=== PATIENT | female | born 1985 | race Caucasian/White ===

== ENCOUNTER 2016-12-08 20:44 | Emergency (ER) | payer BC, MEDICARE | END 2016-12-08 23:54 | disposition left against medical advice (07) | LOC: ER 20:44 | DX: Z53.21 Procedure and treatment not carried out due to patient leaving prior to being seen by health care provider (principal) | CPT/HCPCS: 36415; 80053; 81001; 83690; 84703; 85025; 87077; 87088; 87186 ==

== ENCOUNTER 2016-12-09 07:02 | Emergency (ER) | payer BC, MEDICARE ==
[2016-12-09] MEDS ORDERED: DILAUDID 1 MG/ML AMP ONE (07:33)
[2016-12-09] MEDS ORDERED: PROMETHAZINE 25 MG/ML VIAL ONE (07:33)
[2016-12-09] MEDS ORDERED: CEFTRIAXONE 1 GM VIAL ONE (07:33)
[2016-12-09] MEDS ORDERED: SODIUM CHLORIDE 0.9% 100 ML IV ONE (07:34)
[2016-12-09] MEDS ORDERED: SODIUM CHLORIDE 0.9% 1,000 ML ONE (07:34)
== END 2016-12-09 10:04 | disposition home or self-care (01) ==
LOC: ER 07:02
DX: N10 Acute pyelonephritis (principal); R11.2 Nausea with vomiting, unspecified; E11.43 Type 2 diabetes mellitus with diabetic autonomic (poly)neuropathy; K31.84 Gastroparesis; Z79.4 Long term (current) use of insulin; Z96.89 Presence of other specified functional implants; K21.9 Gastro-esophageal reflux disease without esophagitis; Z87.442 Personal history of urinary calculi
CPT/HCPCS: 82947; 96361; 96365; 96375

== ENCOUNTER 2016-12-10 17:11 | Emergency (ER) | payer BC, MEDICARE ==
[2016-12-10] MEDS ORDERED: PROMETHAZINE 25 MG/ML VIAL ONE ×3 (19:10→23:58)
[2016-12-10] MEDS ORDERED: SODIUM CHLORIDE 0.9% 50 ML IV ONE ×3 (19:11→23:58)
[2016-12-10] MEDS ORDERED: DILAUDID 1 MG/ML AMP ONE ×2 (19:11→21:23)
[2016-12-10] MEDS ORDERED: SODIUM CHLORIDE 0.9% 500 ML IV ONE (23:58)
[2016-12-10] MEDS ORDERED: MORPHINE 4 MG/ML SYR ONE (23:58)
[2016-12-11] MEDS ORDERED: DILAUDID 1 MG/ML AMP ONE (00:26)
[2016-12-11] MEDS ORDERED: SODIUM CHLORIDE 0.9% 1,000 ML ONE (00:42)
== END 2016-12-11 01:55 | disposition home or self-care (01) ==
LOC: ER 17:11
CPT/HCPCS: 36415; 80053; 81001; 82947; 83690; 84703; 85025; 87088; 96361; 96365; 96375; 96376

== ENCOUNTER 2016-12-12 11:53 | Emergency (ER) | payer BC, MEDICARE | END 2016-12-12 15:29 | disposition left against medical advice (07) | LOC: ER 11:53 | DX: Z53.21 Procedure and treatment not carried out due to patient leaving prior to being seen by health care provider (principal) | CPT/HCPCS: 81001; 87088 ==

== ENCOUNTER 2016-12-13 12:45 | Emergency (ER) | payer BC, MEDICARE ==
[2016-12-13] MEDS ORDERED: PROMETHAZINE 25 MG/ML VIAL ONE (14:25)
[2016-12-13] MEDS ORDERED: DILAUDID 1 MG/ML AMP ONE (14:26)
[2016-12-13] MEDS ORDERED: SODIUM CHLORIDE 0.9% 100 ML IV ONE (14:26)
[2016-12-13] MEDS ORDERED: SODIUM CHLORIDE 0.9% 1,000 ML ONE (14:26)
[2016-12-13] MEDS ORDERED: FAMOTIDINE 20 MG INJ ONE (15:44)
== END 2016-12-13 17:06 | disposition home or self-care (01) ==
LOC: ER 13:55
DX: R10.84 Generalized abdominal pain (principal); R31.0 Gross hematuria; E10.43 Type 1 diabetes mellitus with diabetic autonomic (poly)neuropathy; K31.84 Gastroparesis; Z79.4 Long term (current) use of insulin; D17.1 Benign lipomatous neoplasm of skin and subcutaneous tissue of trunk; Z79.2 Long term (current) use of antibiotics; Z87.440 Personal history of urinary (tract) infections
CPT/HCPCS: 36415; 80053; 81001; 82947; 83690; 85025; 96361; 96365; 96375